=== PATIENT | male | born 1995 | race Caucasian/White ===

== ENCOUNTER 2020-03-25 23:06 | Emergency (ER) | payer SELFPAY ==
[~2020-03-25] VITALS: Ht 167.6 cm; Wt 72.6 kg
[2020-03-25 23:06] VITALS: BP_SYST 120
[2020-03-25 23:45] VITALS: BP_SYST 120
== END 2020-03-25 23:45 ==
LOC: SED 23:06
DX: Z02.89 Encounter for other administrative examinations (principal)
CPT/HCPCS: 99283